=== PATIENT | female | born 1935 | race Caucasian/White ===

== ENCOUNTER 2017-04-27 22:25 | Inpatient (IN) | payer MEDICARE, OTHER ==
[~2017-04-27] VITALS: Ht 154.9 cm; Wt 69.3 kg
[~2017-04-27 22:25] MED LIST: ASPI325T10 PO; HYDR25TA4 PO; SYN.088T PO
[2017-04-27 22:37] VITALS: BP 171/101; PULSE 87; RESP 18; O2SAT 92
[2017-04-27 23:38] LABS: BASOPHILS % (AUTO) 0.2 % (0-3); MONOCYTES % (AUTO) 7.5 % (4-12); Mean Corpuscular Volume 92.7 fL (81-100); NEUTROPHILS % (AUTO) 83.5 % (40-74); Platelet Count 190 bil/L (150-400)
[2017-04-28] VITALS (18 sets, daily range): BP systolic 93–178; BP diastolic 47–81; PULSE 57–91; RESP 16–20; O2SAT 92–98
[2017-04-28 00:54] LABS: TROPONIN T < 0.010 ug/L (0.0-0.011)
[2017-04-28 01:04] LABS: Magnesium 1.6 mg/dL (1.6-2.6)
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
[2017-04-28 02:27] LABS: APPEARANCE,URINE CLEAR (CLEAR,HAZY); COLOR,URINE YELLOW (YELLOW); OCCULT BLOOD,URINE NEGATIVE (NEGATIVE); PH,URINE 6.5 (5.0-8.0); UROBILINOGEN,URINE NORMAL (NORMAL)
[2017-04-28] MEDS ORDERED: 0.9% Sodium Chloride 1,000 ML IV SCH (03:21)
[2017-04-28] MEDS ORDERED: Senna-Docusate 8.6-50 mg Tablet PO PRN (03:25)
[2017-04-28] MEDS ORDERED: Alum-Mag Hydrox-Simeth 30 mL Suspension PO PRN (03:25)
[2017-04-28] MEDS ORDERED: Ondansetron 2 mg/mL 2 mL Inj IVPUSH PRN ×2 (03:25→15:35)
[2017-04-28] MEDS ORDERED: Polyethylene Glycol (PEG) 17 Gm Powder PO PRN (03:25)
[2017-04-28] MEDS ORDERED: Atropine 1 mg/10 mL (Code) Syringe IVPUSH PRN ×2 (03:25→15:35)
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
[2017-04-28] MEDS ORDERED: Heparin 25K Unit/500mL 0.45 NS 25,000 UNIT in IV Premix 1 EACH IV SCH (03:45)
[2017-04-28] MEDS ORDERED: Heparin Protocol Boluses IVPUSH PRN (03:50)
[2017-04-28 04:16] LABS: Creatine Kinase 24 U/L (21-215)
[2017-04-28 04:17] LABS: TROPONIN T < 0.010 ug/L (0.0-0.011)
[2017-04-28] MEDS ORDERED: PROP20TA5 PO (05:00)
[2017-04-28] MEDS ORDERED: LEVO75TA4 PO (05:00)
[2017-04-28] MEDS ORDERED: ATOR10TA66 PO (05:00)
[2017-04-28] MEDS ORDERED: ALBU18HF IH (05:00)
[2017-04-28] MEDS ORDERED: CHOL400T30 PO (05:00)
[2017-04-28] MEDS ORDERED: OMEG1CAP15 PO (05:00)
[2017-04-28] MEDS ORDERED: MV-M1TAB38 PO (05:00)
[2017-04-28] MEDS ORDERED: LISI10TA PO (05:00)
[2017-04-28] MEDS ORDERED: HYDR25TA4 (05:00)
[2017-04-28] MEDS ORDERED: VITA400C64 PO (05:00)
[2017-04-28] MEDS ORDERED: ALEN70TA46 PO (05:00)
--- NOTE | 2017-04-28 06:16 | NUR ---
Admit Patient admitted to [facility] 2027 at 0420. Placed on telemetry, sinus rhythm in the 80s. Patient found to have SpO2 of 85% on room air; nasal cannula applied and SpO2 titrated to 5L to bring patient's SpO2 to 92%. Diffuse wheezes throughout the lung mathew, although patient denies shortness of breath. Denies current chest pain; reports leg, abdomen, low back pain "spasms". Heparin gtt initiated at 800 units/ hour per cardiac heparin protocol. Admit documentation completed.
[2017-04-28] MEDS: Sodium Chloride LOK Flush 10 mL Syringe IVFLUSH SCH ×2 (08:30→16:30)
--- NOTE | 2017-04-28 09:03 | NUR ---
Social Work: Initial Assessment D: Per EMR review, pt is a 81 year old female admitted for chest pain resolved. Pt is Medicare with [employer] with no LTC or VA benefits. PCP is ELLIE Kelsey. NOK is Edson Maynard, spouse, . Advanced directives completed- SECURITIES CLERK requested copy for chart. No RA Score entered at this time. SECURITIES CLERK met with the patient at bedside. Social work/dcp role explained, contact information and discharge planning checklist provided. See initial assessment. Pt lives in a mobile home in [place] with her spouse. Pt has to ambulate 1 step to get inside which she states is not a problem. Pt uses no DME, continues to drive and is I with all ADLs and mobility. The patient has never had HH or Skilled rehab. Pt anticipates discharge home when medically stable but is receptive to discharge planning if provider makes recommendations for supportive services. Pt's spouse will transport. A: Pt who is I at baseline. P: Anticipate pt to discharge home via POV once medically stable; SECURITIES CLERK to continue to follow to assess for unmet needs. SANDI Ceron Addendum: 04/28/17 at 0906 by NIKKI RAMIREZ Amended: Links added.
--- NOTE | 2017-04-28 09:42 | DRSVH ---
PROCEDURE: X-RAY CHEST ONE VIEW, PORTABLE ([id number]) INDICATIONS: chest pain TECHNIQUE: One view of the chest was acquired. COMPARISON: [facility], CR, XR CHEST 2VW, 06/15/2015, 13:57. [facility], C T, CT ANGIO CHEST ABD, 04/28/2017, 4:07. FINDINGS: Surgical changes and devices: None. Lungs and pleura: No pleural effusions or pneumothorax. Lungs are clear, and interstitium is promin ent. Mediastinum: Mediastinal contours appear normal. Heart size is enlarged. Bones and chest wall: No suspicious bony lesions. Overlying soft tissues appear unremarkable. IMPRESSION: Mild cardiomegaly and prominent interstitium. Mild early developing pulmonary edema marlo ot be excluded. Correlate clinically. Dictated by: Igor DUNN Interpreted: Neema Adan MD on 04/28/2017 at 8:50 Approved by: Neema Adan M.D. on 04/28/2017 at 9:41
--- NOTE | 2017-04-28 10:13 | DRSVH ---
PROCEDURE: CT ANG CHEST/ABD W/WO CONTRAST ([id number]) INDICATIONS: severe CP radiating to back TECHNIQUE: Precontrast 5 mm thick sections acquired from the lung apices to the iliac crests. After the adminis tration of intravenous contrast, 3 mm thick sections again acquired from the lung apices to the iliac crests. 3-dimensional maximum intensity projection (MIP) oblique sagittal and coronal reformats wer e then acquired, and/or 3-dimensional volume rendering reformats. For radiation dose reduction, the following was used: automated exposure control. COMPARISON: None. FINDINGS: Image quality: Excellent. AORTA: Intramural hematoma: Absent Maximum hematoma thickness: N./A. Focal contrast enhancement: Intramural blood pool (< 2 mm neck or imperceptible communication with aortic lumen): Absent Ulcer-like projection (broad communication with aortic lumen > 3 mm): Absent Dissection: Absent Gadiel classification: N./A. Maximum aortic diameter: 3.4 cm. [If Gadiel A dissection, > 5.0 cm has a poorer prognosis. If Sta nford B dissection, > 4.0 cm has a poorer prognosis.] Periaortic hematoma: Absent CHEST: Lungs and pleura: No acute airspace opacities. No pleural effusions or pneumothorax. Central and p eripheral airways are patent and normal in caliber. Mediastinum: Heart size is normal. Coronary artery calcifications. No pericardial effusion. No med iastinal or hilar adenopathy by size criteria. Central pulmonary arteries are normal in size. Esoph eloisa is normal in caliber. Small hiatal hernia. Bones and chest wall: No axillary adenopathy by size criteria. Thyroid gland is a large 2.6 cm pred ominantly cystic mass in the left lobe.. No suspicious bony lesions. No vertebral body compression fractures. ABDOMEN: Vasculature: Celiac trunk and mesenteric arteries are patent. Renal arteries are also patent. Solid organs: Liver and spleen are normal in size. There is mottled enhancement secondary to timing of the bolus. Gallbladder appears normal. Biliary system is non dilated. Pancreas enhances normally . No adrenal nodules. Both kidneys are normal in size and enhancement, without hydronephrosis. Peritoneum and bowel: No free fluid or air. Bowel loops are normal in caliber and wall thickness. Nodes and vessels: No retroperitoneal or mesenteric adenopathy by size criteria. Inferior vena cava is normal in morphology. Bones: No suspicious bony lesions. No vertebral body compression fractures. Miscellaneous: No ventral hernias. IMPRESSION: 1. 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 2. Thoracic and abdominal aorta show no aneurysmal dilatation or dissection. 3. Moy. branches of the abdominal aorta are patent, the celiac artery showing impression by the forest. 4. Small hiatal hernia. 5. Minimal bibasilar pulmonary atelectasis, no acute cardiopulmonary abnormality. No evidence of pulm onary embolic disease. Dictated by: Madi Huitron M.D. on 04/28/2017 at 10:02 Approved by: Madi Huitron M.D. on 04/28/2017 at 10:12
[2017-04-28 10:38] LABS: Creatine Kinase 27 U/L (21-215)
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
[2017-04-28] MEDS ORDERED: CALC600T12 PO (11:16)
[2017-04-28] MEDS ORDERED: ASPI-235 PO (11:21)
[2017-04-28] MEDS ORDERED: VIT1CAPS8 PO (11:23)
[2017-04-28] MEDS ORDERED: MULT-1018 PO (11:24)
[2017-04-28] MEDS ORDERED: ASCO-294 PO (11:26)
[2017-04-28] MEDS ORDERED: CHOL100043 PO (11:27)
[2017-04-28] MEDS ORDERED: IBUP200C PO (11:38)
[2017-04-28] MEDS ORDERED: HYDR25TA4 PO (11:38)
[2017-04-28] MEDS ORDERED: VITA400C23 PO (11:38)
[2017-04-28] MEDS ORDERED: Nitroglycerin 50,000 mcg/250 mL D5W Premix IV ONE (11:53)
[2017-04-28] MEDS ORDERED: Heparin 1,000 Units/500 mL NS Premix IV ONE (11:53)
[2017-04-28] MEDS ORDERED: Heparin 1,000 Unit/mL 10 mL Inj ONE (11:53)
[2017-04-28] MEDS ORDERED: Heparin 10,000 Unit/1,000 mL NS Premix IV ONE (11:53)
[2017-04-28] MEDS ORDERED: fentaNYL-PF 50 mCg/mL 2 mL Inj ONE (12:28)
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
[2017-04-28] MEDS ORDERED: Sodium Chloride LOK Flush 10 mL Syringe IVFLUSH PRN (15:35)
[2017-04-28] MEDS ORDERED: 0.9% Sodium Chloride 400 ML (4 HRS) IV ONE (15:35)
[2017-04-28] MEDS ORDERED: 0.9% Sodium Chloride 250 ML BOLUS IV PRN (15:35)
[2017-04-28] MEDS ORDERED: diphenhydrAMINE 25 mg Capsule PO ONE (15:40)
--- NOTE | 2017-04-28 15:44 | DRSVH ---
[facility] [address] [place] [address] Echocardiogram Report Name: AMY CLAYTON Date: 04/28/2017 Height: 61 in Hospital Exam Location: [facility] Weight: 156 lb Gender: Female BSA: 1.7 m2 : 1935 Age: 81 yrs BP: 129/79 mmHg Reason For Study: Chest Pain Ordering Physician: Gonzalo Melara Performed By: Katty Meza Referring Physician: Gonzalo Melara Interpretation Summary The ejection fraction is estimated to be 60-65%. There is mild tricuspid regurgitation. The right ventricular systolic pressure is estimated at 28 mmHg assuming a right atrial pressure of 3 mm Hg. Procedure: A two-dimensional transthoracic echocardiogram with color flow and Doppler was performed. The study quality was technically adequate. There is no prior echocardiogram noted for this patient. The patient was in normal sinus rhythm during the exam. The patient had occasional PACs during the exam. Left Ventricle: The left ventricle is normal in size. Left ventricular wall thickness is normal. The ejection fraction is estimated to be 60-65%. Right Ventricle: The right ventricle is normal in size and function. Atria: The left atrial size is normal. Right atrial size is normal. The interatrial septum is intact with no evidence for an atrial septal defect. Mitral Valve: The mitral valve leaflets appear mildly thickened, but open well. There is mild mitral annular calcification. There is trace mitral regurgitation. Aortic Valve: The aortic valve is grossly normal. No aortic regurgitation is present. Tricuspid Valve: The tricuspid valve is normal in structure and function. There is mild tricuspid regurgitation. The right ventricular systolic pressure is estimated at 28 mmHg assuming a right atrial pressure of 3 mm Hg. Pulmonic Valve: The pulmonic valve is normal in structure and function. There is a trace or physiologic amount of pulmonic regurgitation. Great Vessels: The aortic root is normal size. The ascending aorta could not be visualized. The IVC is of normal diameter and collapses greater than 50% with a sniff. This suggests a low right atrial pressure of 3 mm Hg. Pericardium/ Pleura There is no pericardial effusion. There is an anterior echo-free space consistent with a fat pad. There is no pleural effusion. MMode/2D Measurements & Calculations LVIDd: 4.3 cm RA long axis LVOT diam LVIDs: 2.8 cm LA A2 area: 17.8 cm : 1.9 cm FS: 35.3 % LA A4 area: 12.3 cm RA area IVSd: 0.98 cm LA length (vol): 5.0 cm LVPWd: 0.99 cm LA vol: 36.9 ml : 12.0 cm RA vol: 27.8 ml LA vol index: 21.7 ml/m RA IVC diam: 1.9 cm : 16.3 mm2 LV paz. diameter/BSA LV sys. diameter/BSA TAPSE: 3.1 cm (cm/m^2): 2.5 (cm/m^2): 1.6 Doppler Measurements & Calculations Ao V2 max MV E max selvin MV E/A: 0.90 TR max selvin : 144.4 cm/sec : 74.8 cm/sec Med Peak E' Selvin : 248.9 cm/sec Ao max P.3 mmHg MV A max selvin TR max PG Ao mean P.6 mmHg : 82.7 cm/sec E/E' med: 10.6 : 24.9 mmHg LVOT Max Selvin Lat Peak E' Selvin PA V2 max : 124.2 cm/sec : 89.2 cm/sec CHRISTIANO(I,D): 2.7 cm E/E' lat: 7.1 PA mean PG sev ratio: 0.94 E/e' average: 8.9 : 1.9 mmHg MV dec time: 0.17 sec Ao V2 mean LV V1 max PG PA V2 mean : 101.5 cm/sec : 66.3 cm/sec Ao V2 VTI: 25.5 cmLV V1 VTI: 23.9 cm PA pr(Accel) : 35.4 mmHg CHRISTIANO(V,D): 2.5 cm2 CHRISTIANO indexed to BSA (cm^2/m^2): 1.6 Electronically signed by: Gonzalo Melara on Reading Physician:04/28/2017 03:43 PM
--- NOTE | 2017-04-28 18:34 | NUR ---
Back from CathLab/Back Spasms Pt back from cathlab. Report received from Julia ABDI. She is on bedrest until 1730. Procedure was diagnostic only. Pt's chest pain to be managed medically. Pt's diet upgraded to Heart Healthy. At 1700 Pt complained of increasing back spasms and was administered 975mg of PO Tylenol. Upon reassessment, pt stated that she had some relief and was feeling more comfortable. At 1745 pt asked to use BSC, as she was off of bedrest, this RN and POST GRADUATE INTERN attempted to help her to BSC. Pt was assisted to sitting at edge of bed, when she yelled out in pain as her back began to spasm. This RN attempted to massage out the spasm with no relief. Pt was able to stand at edge of bed, but was unable to move to BSC. Pt was assisted back into bed and helped onto the bedpan to void.
[2017-04-28] MEDS ORDERED: Albuterol 2.5 mg/3 mL Inhalation Solution NEB PRN (20:00)
[2017-04-29] MEDS: Sodium Chloride LOK Flush 10 mL Syringe IVFLUSH SCH ×2 (00:11→08:25)
[2017-04-29 04:03] VITALS: BP 99/59; PULSE 57; RESP 16; O2SAT 94
[2017-04-29 04:08] LABS: BASOPHILS % (AUTO) 0.2 % (0-3); EOSINOPHILS % (AUTO) 0.6 % (0-5); MONOCYTES % (AUTO) 10.4 % (4-12); Mean Corpuscular Hemoglobin 30.8 pg (27.0-35.0); Mean Corpuscular Volume 94.5 fL (81-100); NEUTROPHILS % (AUTO) 75.4 % (40-74); Platelet Count 142 bil/L (150-400)
--- NOTE | 2017-04-29 05:38 | NUR ---
Pain/Mobility Continues to have increase of back spasms. Denies Chestpain/SOB. MD order for Flexeril received, with some relief. Pt. indicates it made her fuzzy, later requested Tylenol for further pain. Up to BSC (x2)with 2 person assist, at pace to support pt. level of comfort. Pt indicates fear that will not be able to assist her at home. Requested visit from PT. Groin right site soft, c/d/i, no hematoma appreciated. VSS. Tele: SR 50% with IVCD. O2 titrated to 2L NC, Spo2 94%.
--- NOTE | 2017-04-29 07:06 | CS94 ---
[address] [address] DIAGNOSTIC CARDIAC CATHETERIZATION PATIENT: AMY CLAYTON : 1935 MR#: [id number] ADMIT: 04/28/2017 JOB ID: [id number] SERVICE DATE: 04/28/2017 INDICATION: Acute coronary syndrome. PROCEDURE: 1. Selective right and left coronary angiography. 2. Left ventriculography. 3. Left heart catheterization. PROCEDURAL DETAILS: Please refer to the procedure log which enumerates these in detail, the coders as well as the reader is referred to this document. ANGIOGRAPHIC FINDINGS: 1. Left main: Short no significant disease. 2. LAD is a moderate caliber vessel. In its mid segment it has an eccentric 50% to 60% lesion. No critical stenosis is noted. The first major diagonal is a bifurcating moderate caliber vessel. The superior branch has an ostial 40% lesion. 3. Circumflex nondominant free of any significant disease. 4. Right coronary artery is a large caliber, dominant vessel. In its mid segment it has about a 30% lesion. No critical stenosis. 5. Left heart catheterization revealed an LVEDP of 12-15. There was no gradient upon pullback. Left ventriculography revealed preserved LV function. EF is estimated to be 70% or greater. In summary, modest LAD disease best treated medically.
[2017-04-29] MEDS ORDERED: CYCL5TAB PO (07:43)
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
[2017-04-29 08:13] VITALS: BP 118/66; PULSE 72; O2SAT 94
[2017-04-29 08:49] VITALS: PULSE 80
--- NOTE | 2017-04-29 11:00 | NUR ---
Social Work: Discharge/Multidisciplinary Rounds D: Pt discussed in multidisicplinary rounds; the patient is medically stable for discharge home pending recommendation from PT. PT evaluation was completed and patient has been cleared to go home. Pt recommended to use her FWW which she has at home. Capacity for self care discussed; no concerns or needs at this time. MARBLE COPER met with the patient at bedside to confirm discharge plan. Patient states that she agrees with the plan to go home and confirms she has a FWW at home which she intends to use regularly. The patient states that her spouse will transport her home and that she has no concerns. EMR reviewed; no further needs identified at this time. A: Pt who lives in [place] with her spouse and is recommended to use a FWW for continued ambulation P: Pt to discharge home via POV with no further sw needs. SANDI Ceron
--- NOTE | 2017-04-29 12:38 | NUR ---
Discharge Pt discharged to home with transportation by her . Pt's IV's dc'd intact. Telemetry was removed and tech notified. Pt discharge instructions, new medications and follow up appointments were reviewed. All questions were answered and pt voiced understanding. Pt's belongings were gathered for transportation home with pt. Pt escorted off unit to her 's vehicle by SAUL.
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
== END 2017-04-29 12:19 | disposition home or self-care (01) | DRG 287 ==
LOC: SED 22:25 → PCC 04-28 03:47 → OBSVTOIN 04-28 03:47
PROVIDERS: ADMIT Hospitalist; ATTEND Internal Medicine
PROC: 4A023N7 Measurement of Cardiac Sampling and Pressure, Left Heart, Percutaneous Approach (ICD-10-PCS; principal; 2017-04-28)
PROC: B2111ZZ Fluoroscopy of Multiple Coronary Arteries using Low Osmolar Contrast (ICD-10-PCS; 2017-04-28)
PROC: B2151ZZ Fluoroscopy of Left Heart using Low Osmolar Contrast (ICD-10-PCS; 2017-04-28)
DX: I20.0 Unstable angina (principal); I10 Essential (primary) hypertension; E11.9 Type 2 diabetes mellitus without complications; E03.9 Hypothyroidism, unspecified; G25.81 Restless legs syndrome; E78.5 Hyperlipidemia, unspecified; Z79.82 Long term (current) use of aspirin; Z79.51 Long term (current) use of inhaled steroids; Z87.891 Personal history of nicotine dependence; Z82.49 Family history of ischemic heart disease and other diseases of the circulatory system